=== PATIENT | female | born 1935 | race Caucasian/White ===

== ENCOUNTER → 2018-07-19 | Outpatient (CLI) | payer MEDICARE, BC ==
--- NOTE | 2018-07-19 20:41 | Diagnostic Imaging Report ---
EXAM: CT Chest WITHOUT contrast 07/19/2018 9:00 AM INDICATION: ^[id number] ^[id number] ^ABN CHEST XRAY COMPARISON: None TECHNIQUE: Chest was scanned utilizing a multidetector helical scanner from the lung apex through the level of the adrenal glands without administration of IV contrast. Absence of intravenous contrast decreases sensitivity for detection of lymphadenopathy and vascular pathology. Coronal and sagittal reformations were obtained. Routine protocol was performed. IV CONTRAST: None COMPLICATIONS: None RADIATION DOSE: Total DLP: 291.5 mGy*cm Estimated effective dose: (DLP x 0.015 x size factor) mSv CTDIvol has been reviewed. It is below the limits set by the Radiation Protocol Committee (RPC). FINDINGS: STUDY LIMITATIONS: The blunt artifact traversing the upper chest at the level of the first and second ribs and upper trachea. LINES/ TUBES: None. LUNGS AND AIRWAYS: Reticular nodular scarring in the right upper lobe with a more discrete nodule measuring 6 mm on series 3, image 30. Pleural-based irregular nodule in the right upper lobe on image 36 measures 9 mm. Mildly irregular pleural-based soft tissue density adjacent to the aortic arch on image 35 may represent scarring. Mild central bronchiectasis. PLEURA: The pleural spaces are clear. HEART AND MEDIASTINUM: The thyroid gland is normal. No mediastinal, hilar or axillary lymphadenopathy. Mild to moderate enlargement of the left ventricle and left atrium. There is no pericardial effusion. Extensive coronary artery calcifications. The thoracic aorta normal in caliber and associated with moderate atherosclerotic calcifications. The main pulmonary artery is normal in caliber measuring 2.3 cm in diameter. 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 UPPER ABDOMEN: Cortical atrophy of both kidneys. BONES: Moderate wedge compression deformity of L1 vertebral body, status post kyphoplasty. Multilevel degenerative changes of the thoracic spine. SOFT TISSUES: Unremarkable. IMPRESSION: 1. 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 Recommend GI/thoracic surgery consultation. 2. Mild to moderate enlargement of the left atrium and left ventricle. 3. Reticulonodular scarring in the right upper lobe with a discrete 6 mm nodule and a pleural-based mildly irregular 9 mm nodule. Recommend further evaluation with CT chest without contrast in 3-6 months. Signed by: Dr. Glenda Leyva M.D. on 07/19/2018 8:38 PM
== END ==
LOC: CT 08:30
PROVIDERS: ATTEND Family Medicine
DX: R93.89 Abnormal findings on diagnostic imaging of other specified body structures (principal)
CPT/HCPCS: 71250

== ENCOUNTER → 2018-07-25 | Outpatient (CLI) | payer MEDICARE, BC ==
--- NOTE | 2018-07-25 08:28 | Diagnostic Imaging Report ---
PROCEDURE: X-RAY UPPER GI SERIES WITH AIR CONTRAST TECHNIQUE: Effervescent crystals and barium were ingested by mouth. Multiple fluoroscopic spot images of the esophagus, stomach, and proximal small bowel were obtained. Fluoroscopy time: 1.2 minutes Air Kerma: 16 mGy COMPARISON: CT chest without contrast 07/19/2018. INDICATIONS: Not provided. FINDINGS: ESOPHAGUS: Motility: Multiple tertiary, nonperistaltic contractions. Mucosa: Unremarkable. Distensibility: Normal. GASTROESOPHAGEAL JUNCTION: Large hiatal hernia is again noted, with evidence of organoaxial volvulus. Approximately 50% of the gastric volume lies above the diaphragm. GASTROESOPHAGEAL REFLUX: None observed. STOMACH: Limited evaluation at the midportion due to constriction by the diaphragm. No gross mass lesion, mucosal abnormality, or filling defect. DUODENUM: Bulb and sweep are normal. Duodenal-jejunal junction is in the normal expected position. IMPRESSION: Large hiatal hernia with findings of organoaxial volvulus again noted. Approximately 50% of the gastric volume lies above the diaphragm. Dictated by: Larry Velazquez M.D. on 07/25/2018 at 8:39 Electronically approved by: Larry Velazquez M.D. on 07/25/2018 at 8:39
== END ==
LOC: DX 07:26
PROVIDERS: ATTEND Surgery
DX: K44.9 Diaphragmatic hernia without obstruction or gangrene (principal)
CPT/HCPCS: 74220; 74246